=== PATIENT | female | born 1990 | race Two or more races ===

== ENCOUNTER → 2018-01-14 14:56 | Outpatient (CLI) | payer OTHER | END | disposition home or self-care (01) | LOC: LAB 14:56 | DX: E55.9 Vitamin D deficiency, unspecified (principal); M85.9 Disorder of bone density and structure, unspecified; E21.4 Other specified disorders of parathyroid gland; E88.89 Other specified metabolic disorders; M81.8 Other osteoporosis without current pathological fracture; E56.1 Deficiency of vitamin K ==

== ENCOUNTER 2018-10-28 09:00 | Outpatient (CLI) | payer OTHER ==
[~2018-10-28] VITALS: Ht 152.4 cm; Wt 77.1 kg
== END 2018-10-28 09:15 | disposition home or self-care (01) ==
LOC: OFIC 805 09:00
DX: H90.3 Sensorineural hearing loss, bilateral (principal); J31.0 Chronic rhinitis; H93.13 Tinnitus, bilateral

== ENCOUNTER → 2018-11-25 08:50 | Outpatient (CLI) | payer OTHER | END | disposition home or self-care (01) | LOC: LAB 08:50 | DX: K30 Functional dyspepsia (principal); R10.10 Upper abdominal pain, unspecified; Z00.00 Encounter for general adult medical examination without abnormal findings ==

== ENCOUNTER → 2019-06-26 16:37 | Outpatient (CLI) | payer OTHER | END | disposition home or self-care (01) | LOC: RAD 16:37 | DX: J00 Acute nasopharyngitis [common cold] (principal) ==

== ENCOUNTER 2019-06-27 10:08 | Outpatient (CLI) | payer OTHER | END 2019-06-27 10:46 | disposition home or self-care (01) | LOC: LAB 10:08 | DX: D64.89 Other specified anemias (principal); E78.2 Mixed hyperlipidemia; E03.8 Other specified hypothyroidism; N39.0 Urinary tract infection, site not specified ==

== ENCOUNTER 2019-07-21 08:02 | Outpatient (CLI) | payer OTHER | END 2019-07-21 08:13 | disposition home or self-care (01) | LOC: SONOGRAMA 08:02 → MAMO-SONO 09:45 | DX: D64.89 Other specified anemias (principal); R10.2 Pelvic and perineal pain ==

== ENCOUNTER 2019-08-24 10:50 | Outpatient (CLI) | payer OTHER | END 2019-08-24 11:00 | disposition home or self-care (01) | LOC: NUCLEAR 10:50 | DX: M85.89 Other specified disorders of bone density and structure, multiple sites (principal) ==

== ENCOUNTER 2020-07-05 09:33 | Outpatient (CLI) | payer OTHER | END 2020-07-05 09:42 | disposition home or self-care (01) | LOC: LAB 09:33 | PROVIDERS: ATTEND Internal Medicine | DX: J11.1 Influenza due to unidentified influenza virus with other respiratory manifestations (principal); Z20.828 Contact with and (suspected) exposure to other viral communicable diseases; D64.89 Other specified anemias; A49.3 Mycoplasma infection, unspecified site; J10.1 Influenza due to other identified influenza virus with other respiratory manifestations ==

== ENCOUNTER 2020-08-16 09:05 | Outpatient (CLI) | payer OTHER | END 2020-08-16 09:21 | disposition home or self-care (01) | LOC: NUCLEAR 09:05 | PROVIDERS: ATTEND Orthopaedic Surgery | DX: M85.9 Disorder of bone density and structure, unspecified (principal); M81.0 Age-related osteoporosis without current pathological fracture ==

== ENCOUNTER 2020-10-09 12:01 | Outpatient (CLI) | payer OTHER | END 2020-10-09 12:13 | disposition home or self-care (01) | LOC: SONOGRAMA 12:01 → MAMO-SONO 12:15 | PROVIDERS: ATTEND Internal Medicine | DX: M25.511 Pain in right shoulder (principal) ==

== ENCOUNTER 2020-11-25 11:31 | Outpatient (CLI) | payer OTHER | END 2020-11-25 11:43 | disposition home or self-care (01) | LOC: LAB 11:31 | PROVIDERS: ATTEND Orthopaedic Surgery | DX: E55.9 Vitamin D deficiency, unspecified (principal); M85.9 Disorder of bone density and structure, unspecified; E56.1 Deficiency of vitamin K ==

== ENCOUNTER 2022-04-16 14:56 | Outpatient (CLI) | payer OTHER | END 2022-04-16 15:05 | disposition home or self-care (01) | LOC: LAB 14:56 | PROVIDERS: ATTEND Internal Medicine | DX: D64.9 Anemia, unspecified (principal); B96.0 Mycoplasma pneumoniae [M. pneumoniae] as the cause of diseases classified elsewhere; J10.1 Influenza due to other identified influenza virus with other respiratory manifestations; J11.1 Influenza due to unidentified influenza virus with other respiratory manifestations; Z20.828 Contact with and (suspected) exposure to other viral communicable diseases ==

== ENCOUNTER → 2023-04-05 09:39 | Outpatient (CLI) | payer OTHER | END | disposition home or self-care (01) | LOC: LAB 09:39 | PROVIDERS: ATTEND Orthopaedic Surgery | DX: M85.9 Disorder of bone density and structure, unspecified (principal); E83.42 Hypomagnesemia; E56.1 Deficiency of vitamin K ==

== ENCOUNTER 2024-06-22 08:44 | Outpatient (CLI) | payer OTHER | END 2024-06-22 08:54 | disposition home or self-care (01) | LOC: LAB 08:44 | PROVIDERS: ATTEND Orthopaedic Surgery | DX: E55.9 Vitamin D deficiency, unspecified (principal); M85.9 Disorder of bone density and structure, unspecified; E56.1 Deficiency of vitamin K ==

== ENCOUNTER 2024-08-28 08:36 | Outpatient (CLI) | payer OTHER ==
[2024-08-28 09:44] LABS: HEMATOCRIT 34.6 % (36.0-45.00); HEMOGLOBIN 10.6 g/dL (12.0-15.00); MEAN CORPUSCULAR HEMOGLOBIN 19.6 pg (27.00-32.0); MEAN CORPUSCULAR HGB CONC 30.7 g/dl (32.0-36.0); PLATELET COUNT 320 K/uL (150-450); RED BLOOD COUNT 5.41 M/uL (4.00-6.00); RED CELL DISTRIBUTION WIDTH 19.9 % (11.5-14.5)
[2024-08-28 09:50] LABS: ERYTHROCYTE SEDIMENTATION RATE 112 mm/hr
[2024-08-28 10:01] LABS: URINE APPEARANCE Cloudy; URINE BILIRRUBIN Negative (NEGATIVE); URINE BLOOD Large; URINE COLOR Red; URINE GLUCOSE Negative (NEGATIVE); URINE KETONE Negative (NEGATIVE); URINE LEUKOCYTE Small; URINE NITRATE Negative; URINE PROTEIN 30 (NEGATIVE); URINE UROBILINOGEN 0.2 E.U./dl
[2024-08-28 10:03] LABS: URINE BACTERIA 1102.7 uL (0.0-1933); URINE EPITHELIAL CELLS 20.7 uL (0.0-38.8)
[2024-08-28 10:04] LABS: URINE CAST 0.35 uL (0.0-1.40); URINE RBC > 10558.9 uL (0.0-20.8)
[2024-08-28 10:55] LABS: BILIRUBIN TOTAL 0.39 mg/dL (0.3-1.2); C-REACTIVE PROTEIN 2.09 MG/DL (0.00-0.29); CALCIUM 8.5 mg/dL (8.5-10.1); CHOL HDL RATIO 2.6 (0-5.0); CREATININE SERUM 0.53 mg/dL (0.55-1.02); GFR 132.05; GLOBULINA 4.4 G/DL (2.4-3.5); POTASSIUM 4.07 mEq/L (3.5-5.1); TOTAL PROTEIN 7.4 gm/dL (6.4-8.2); TSH 3.25 uIU/mL (0.358-3.74)
[2024-08-30 08:08] LABS: ALDOLASE 13.5 U/L (3.3-10.3)
== END 2024-08-28 08:37 | disposition home or self-care (01) ==
LOC: LAB 08:36
PROVIDERS: ATTEND Internal Medicine
DX: D64.9 Anemia, unspecified (principal); I10 Essential (primary) hypertension; E03.9 Hypothyroidism, unspecified; E78.2 Mixed hyperlipidemia; N39.0 Urinary tract infection, site not specified; M79.18 Myalgia, other site; R29.898 Other symptoms and signs involving the musculoskeletal system; R74.8 Abnormal levels of other serum enzymes; E74.19 Other disorders of fructose metabolism; R74.02 Elevation of levels of lactic acid dehydrogenase [LDH]

== ENCOUNTER 2024-08-28 10:39 | Outpatient (CLI) | payer OTHER | END 2024-08-28 10:53 | disposition home or self-care (01) | LOC: RAD 10:39 | PROVIDERS: ATTEND Internal Medicine | DX: M54.2 Cervicalgia (principal) ==

== ENCOUNTER 2025-02-27 10:08 | Outpatient (CLI) | payer OTHER | END 2025-02-27 10:09 | disposition home or self-care (01) | LOC: NUCLEAR 10:08 | DX: I73.9 Peripheral vascular disease, unspecified (principal); I87.2 Venous insufficiency (chronic) (peripheral) ==

== ENCOUNTER 2025-03-13 09:51 | Outpatient (CLI) | payer OTHER | END 2025-03-13 09:52 | disposition home or self-care (01) | LOC: NUCLEAR 09:51 | DX: I73.9 Peripheral vascular disease, unspecified (principal); I87.2 Venous insufficiency (chronic) (peripheral) ==

== ENCOUNTER → 2025-04-30 08:51 | Outpatient (CLI) | payer OTHER ==
[2025-04-30 10:25] LABS: BASO % 0.6 % (0.1-1.2); EOS # 0.30 (0.04-0.54); EOS % 3.2 % (0.7-7.0); LYMPH # 2.06 (1.18-3.74); LYMPH % 22.2 % (19.3-53.1); MEAN PLATELET VOLUME 9.60 fl (9.4-12.4); MONO # 0.49 (0.24-0.82); MONO % 5.3 % (4.7-12.5); NEUT # 6.33 (1.56-6.13); NEUT % 68.3 % (34.0-71.1); RED CELL DISTRIBUTION WIDTH 18.8 % (11.6-14.4)
[2025-04-30 11:23] LABS: ALT/SGPT 27.0 U/L (12-78); AST/SGOT 12.0 U/L (15-37); BILIRUBIN TOTAL 0.3 mg/dL (0.3-1.2); BUN CREA RATIO 19.0 (7.0-25.0); CHOL HDL RATIO 2.8 (0-5.0); CREATININE SERUM 0.52 mg/dL (0.55-1.02); GFR 134.19; GLOBULINA 4.5 G/DL (2.4-3.5); GLUCOSE FASTING 84.0 mg/dL (65-100); HDL 65.0 mg/dl (40-60); LDL 102.0 mg/dl (0-130); OSMOLALITY SERUM 278.0 MOSM/KG (275-295); T4 FREE 0.98 NG/ML (0.76-1.46); TSH 1.57 uIU/mL (0.358-3.74); VLDL 12.0 (0-39)
[2025-04-30 11:47] LABS: CORTISOL 7.19 ug/dl; VITAMIN D3 25 HYDROXY 44.09 ng/ml (30-120)
== END | disposition home or self-care (01) ==
LOC: LAB 08:51
PROVIDERS: ATTEND Internal Medicine
DX: E04.9 Nontoxic goiter, unspecified (principal); E11.65 Type 2 diabetes mellitus with hyperglycemia; E78.5 Hyperlipidemia, unspecified; I10 Essential (primary) hypertension; E03.8 Other specified hypothyroidism; E55.9 Vitamin D deficiency, unspecified; M81.0 Age-related osteoporosis without current pathological fracture

== ENCOUNTER 2025-04-30 12:26 | Outpatient (CLI) | payer OTHER | END 2025-04-30 12:34 | disposition home or self-care (01) | LOC: SONOGRAMA 12:26 | PROVIDERS: ATTEND Internal Medicine | DX: E04.2 Nontoxic multinodular goiter (principal) ==

== ENCOUNTER 2025-05-26 09:28 | Outpatient (CLI) | payer OTHER ==
[2025-05-26 11:13] LABS: FE 20.0 ug/dl (50-170)
[2025-05-26 12:14] LABS: FOLIC ACID > 20.00 ng/ml (4.78-20)
== END 2025-05-26 09:37 | disposition home or self-care (01) ==
LOC: LAB 09:28
DX: D64.9 Anemia, unspecified (principal); E53.8 Deficiency of other specified B group vitamins; E61.1 Iron deficiency; D52.0 Dietary folate deficiency anemia

== ENCOUNTER 2025-05-28 08:40 | Outpatient (CLI) | payer OTHER | END 2025-05-28 08:41 | disposition home or self-care (01) | LOC: SONOGRAMA 08:40 | PROVIDERS: ATTEND Pathology Anatomic Pathology & Clinical Pathology | DX: D44.0 Neoplasm of uncertain behavior of thyroid gland (principal); E04.2 Nontoxic multinodular goiter ==